=== PATIENT | male | born 1960 | race Caucasian/White ===

== ENCOUNTER 2017-01-31 13:44 | Emergency (ER) | payer OTHER ==
[~2017-01-31] VITALS: Ht 172.7 cm; Wt 80.5 kg
[~2017-01-31 13:44] MED LIST: Bactrim,Septra DS 80 PO; ENDOCET 5-3251 EACH PO; Hydrodiuril,Oretic,E PO; LIPITOR20 MG PO; NOHOMEMEDS; Pepcid PO; TAZTIA XT240 M1 PO; no home meds
[2017-01-31 14:05] LABS: EOSINOPHIL (%) 0 % (0-5); IMMATURE GRANULOCYTE (%) 0.3 % (0.0-0.7); INSTRUMENT ABS NEUTROPHIL CT 9.3 K/uL; MCH 31.9 PG (29.0-34.0); MCHC 33.8 G/DL (30.0-36.0); MCV 94.4 FL (86-99); MEAN PLAT.VOLUME 8.8 uM^3 (9.0-12.4); MONOCYTE (%) 10.1 % (3-12); MONOCYTE COUNT 1.3 K/uL (0-0.8); NEUTROPHIL (%) 73.5 % (45-76); NEUTROPHIL COUNT 9.3 K/uL (1.8-6.4); PLATELET COUNT 251 K/uL (156-360); RBC DIS.WIDTH-CV 12.6 % (11.8-14.6); RBC DIS.WIDTH-SD 43.6 % (39-53); RED BLOOD COUNT 4.45 M/uL (4.00-5.50); WHITE BLOOD COUNT 12.7 K/uL (4.1-10.2)
[2017-01-31 14:15] LABS: CHLORIDE 105 mEq/L (99-109); POTASSIUM 3.9 mEq/L (3.7-5.4); SODIUM 138 mEq/L (136-147)
[2017-01-31 14:17] LABS: GLUCOSE 119 mg/dL (70-99)
[2017-01-31 14:18] LABS: ANION GAP 9 MEQ/L (2-14)
[2017-01-31 14:21] LABS: GFR ESTIMATE (CALCULATED) 51 mL/min/; UREA NITROGEN (BUN) 18 mg/dL (9-23)
[2017-01-31 15:26] LABS: ERTH.SED.RATE 19 MM/HR (0-20)
[2017-01-31 15:33] LABS: C-REACTIVE PROTEIN 111.9 MG/L (0-10)
[2017-01-31] MEDS ORDERED: CLEOCIN300 MG PO (16:13)
[2017-01-31] MEDS ORDERED: NAPROSYN500 MG PO (16:13)
[2017-01-31 16:34] VITALS: BP 138/87
== END 2017-01-31 16:35 | disposition home or self-care (01) ==
LOC: EME 13:44
DX: M70.21 Olecranon bursitis, right elbow (principal); I10 Essential (primary) hypertension; K21.9 Gastro-esophageal reflux disease without esophagitis
CPT/HCPCS: 73080; 80048; 85025; 85651; 86140; 99281; 99284

== ENCOUNTER 2018-05-07 10:25 | Emergency (ER) | payer BC ==
[~2018-05-07] VITALS: Ht 165.1 cm; Wt 89.3 kg
[~2018-05-07 10:25] MED LIST changes: +CLEOCIN300 MG PO; +NAPROSYN500 MG PO
[2018-05-07 11:05] LABS: HEMATOCRIT 45.2 % (38.0-50.0); HEMOGLOBIN 15.8 G/DL (12.5-16.6); MCH 32.3 PG (29.0-34.0); MCV 92.4 FL (86-99); PLATELET COUNT 228 K/uL (156-360); RBC DIS.WIDTH-CV 12.6 % (11.8-14.6); RBC DIS.WIDTH-SD 42.8 % (39-53); RED BLOOD COUNT 4.89 M/uL (4.00-5.50); WHITE BLOOD COUNT 11.4 K/uL (4.1-10.2)
[2018-05-07 11:16] LABS: ALBUMIN 4.1 g/dL (3.2-4.8); CHLORIDE 99 mEq/L (99-109); SODIUM 136 mEq/L (136-147)
[2018-05-07 11:19] LABS: GLUCOSE 121 mg/dL (70-99); TOTAL PROTEIN 7.7 g/dL (6.4-8.3)
[2018-05-07 11:21] LABS: TOTAL BILIRUBIN 0.4 mg/dL (0.0-1.0)
[2018-05-07 11:22] LABS: ALKALINE PHOSPHATASE 101 IU/L (3-129)
[2018-05-07 11:23] LABS: CREATININE 1.8 mg/dL (0.6-1.3); GFR ESTIMATE (CALCULATED) 41 mL/min/ (58.99-99999)
[2018-05-07 11:24] LABS: AST (GOT) 22 IU/L (2-34); DIRECT BILIRUBIN 0.2 mg/dL (0.0-0.3); UREA NITROGEN (BUN) 17 mg/dL (9-23)
[2018-05-07 11:26] LABS: ALT (GPT) 20 IU/L (3-49); LIPASE 16 U/L (1.0-51.0)
[2018-05-07 11:28] LABS: TROP-I INTERPRETATION NEGATIVE; TROPONIN-I < 0.01 ng/mL (0.0-0.30)
[2018-05-07 13:57] LABS: APPEARANCE CLEAR ((CLEAR)); BILIRUBIN NEGATIVE; BLOOD NEGATIVE; COLOR YELLOW ((YELLOW)); GLUCOSE (STRIP) NEGATIVE; KETONES 5; LEUKOCYTES NEGATIVE; NITRITE NEGATIVE; PROTEIN (STRIP) 100; SPECIFIC GRAVITY 1.021 (1.000-1.030)
[2018-05-07 14:04] LABS: BACTERIA NONE SEEN /HPF; EPITHELIAL CELLS RARE /HPF; MUCUS 1+ /LPF; RED BLOOD CELLS 0-5 /HPF (0-5); UCUL ADDED? NO; WHITE BLOOD CELLS 0-5 /HPF (0-5)
[2018-05-07 14:22] LABS: TROP-I INTERPRETATION NEGATIVE; TROPONIN-I < 0.01 ng/mL (0.0-0.30)
[2018-05-07] MEDS ORDERED: ZOFRAN ODT4 MG PO (14:25)
[2018-05-07] MEDS ORDERED: BENTYL20 MG PO (14:25)
[2018-05-07 14:39] VITALS: BP 143/104
== END 2018-05-07 14:40 | disposition home or self-care (01) ==
LOC: EME 10:25
PROVIDERS: Nurse Practitioner Family
DX: R11.2 Nausea with vomiting, unspecified (principal); R19.7 Diarrhea, unspecified; N17.9 Acute kidney failure, unspecified; E86.0 Dehydration; R07.9 Chest pain, unspecified; R06.02 Shortness of breath; R00.0 Tachycardia, unspecified; Z85.46 Personal history of malignant neoplasm of prostate
CPT/HCPCS: 71046; 80048; 80076; 81003; 83690; 84484; 85027; 93005; 99281; 99285; J2405; J7030